=== PATIENT | female | born 1975 | race Two or more races ===

== ENCOUNTER → 2023-12-07 | Day surgery (SDC) | payer MEDICAID ==
[2023-12-02 15:56] LABS: Basophils # (auto) 0.1 10 ^3/uL (0-0.2); Eosinophils # (auto) 0.1 10 ^3/uL (0-0.8); Hematocrit 40.4 % (36.0-46.0); Hemoglobin 13.8 g/dL (12.2-16.2); Lymphocytes % (auto) 28.3 % (10.0-50.0); Mean Corpuscular Hemoglobin 29.3 pg (28.0-32.0); Mean Corpuscular Hgb Conc. 34.2 g/dL (32.0-36.0); Mean Corpuscular Volume 85.7 fL (80.0-100.0); Monocytes # (auto) 0.4 10 ^3/uL (0-1.3); Monocytes % (auto) 6.1 % (0.0-12.0); Neutrophils # (auto) 4.5 10 ^3/uL (1.6-8.6); Neutrophils % (auto) 63.6 % (37.0-80.0); Red Blood Cells 4.72 10^6/uL (4.0-5.20); Red Cell Distribution Width 12.9 % (11.8-14.3)
[2023-12-02 16:20] LABS: INR 1.04 (0.9-1.15); Partial Thromboplastin Time 27.2 SEC (24.5-34.5)
[2023-12-02 16:55] LABS: Alanine Aminotransferase 36 U/L (7-40); Albumin 4.4 g/dL (3.2-4.8); Alkaline Phosphatase 85 U/L (46-116); Anion Gap 9 (5-15); Aspartate Aminotransferase 14 U/L (13-40); BUN/Creatinine Ratio 9.8 (10.0-20.0); Blood Urea Nitrogen 8 mg/dL (9-23); Calcium 9.4 mg/dL (8.7-10.4); Carbon Dioxide 24 mmol/L (20-30); Chloride 108 mmol/L (98-107); Glucose 106 mg/dL (74-106); Potassium 3.7 mmol/L (3.5-5.1); Sodium 141 mmol/L (136-145)
[2023-12-02 16:56] LABS: Bilirubin, Total 0.4 mg/dL (0.2-1.0); Total Protein 7.2 g/dL (5.7-8.2)
[~2023-12-07] VITALS: Ht 157.5 cm; Wt 70.3 kg
[~2023-12-07] MED LIST: SODIUM CHLORIDE LOCK 10 ML ONE
[2023-12-07 10:52] VITALS: O2SAT 99
[2023-12-07] MEDS: fentaNYL CITRATE 100 MCG/2 ML VL ONE (10:52)
[2023-12-07] MEDS: MIDAZOLAM HCL 5 MG/ML-1ML VIAL ONE (10:52)
[2023-12-07] MEDS: diphenhdrAMINE HCL 50 MG/1 ML VL ONE (10:52)
[2023-12-07 11:15] VITALS: PULSE 62; RESP 14; TEMP 97.8; O2SAT 100
[2023-12-07 12:30] VITALS: BP 119/71; PULSE 64; RESP 12; O2SAT 100
== END | disposition home or self-care (01) ==
LOC: GI 09:26
PROVIDERS: ATTEND Internal Medicine Gastroenterology
DX: Z12.11 Encounter for screening for malignant neoplasm of colon (principal); D12.0 Benign neoplasm of cecum; K64.0 First degree hemorrhoids; K63.5 Polyp of colon; K64.4 Residual hemorrhoidal skin tags; K64.8 Other hemorrhoids; Z90.711 Acquired absence of uterus with remaining cervical stump; Z88.8 Allergy status to other drugs, medicaments and biological substances
CPT/HCPCS: 36415; 45380; 80053; 84702; 85025; 85610; 85730; 88305; J1200; J2250; J3010; J7030; 99152